=== PATIENT | male | born 1955 | race Caucasian/White ===

== ENCOUNTER 2016-04-03 09:12 | Emergency (ER) | payer OTHER ==
[2016-04-03 09:19] VITALS: RESP 18; TEMP 97.3; O2SAT 96
--- NOTE | 2016-04-03 11:30 | EDPHY ---
H & P Stated Complaint: HX OF OLD TO FOOT STILL HURTING. NOT USING [place] BOOT HPI/ROS: Chief complaint: Right foot pain, recent foot fracture History of present illness: This is a 60-year-old male who presents to the emergency department for persistent right foot pain. Patient states approximately 3 weeks ago he tripped and fell and broke his foot. He was seen at a hospital in [place]. He was placed in a walking boot. He states the walking boot was uncomfortable and he quickly stopped using it. He states he still has persistent pain. He denies other associated signs or symptoms including no open wounds, no paresthesias or abnormal coolness to the foot. No report of new trauma. No report of pain in or trauma to other parts of the body. 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 The knee and lower leg are nontender. He can move the knee well. He can move the digits of the foot well. Discomfort moving the ankle. Neurologic exam: The patient has normal sensation and motor function distal to the injury. Vascular exam: Normal pulses and capillary refill in the foot Skin: No open wounds to the right foot or ankle. Constitutional: Initial Vital Signs Temperature (C) 36.3 C 04/03/16 09:16 Heart Rate 103 H 04/03/16 09:16 Respiratory Rate 18 04/03/16 09:16 Blood Pressure 134/92 H 04/03/16 09:16 O2 Sat (%) 96 04/03/16 09:16 O2 Delivery Mode Room Air Allergies/Adverse Reactions: No Known Allergies Allergy (Unverified 04/03/16 09:19) Home Medications: Medication Instructions Recorded Hydrocodone/APAP 5/325 [[place] 1 tab PO Q4 #10 tab 04/03/16 5/325 (*)] Medical Decision Making - Diagnostics Imaging: X-ray series of the right ankle and foot reveal a an acute distal fibula fracture Procedures: Procedure: Splint placement. A walking boot splint was applied. After application of the splint I returned and re-examined the patient. The splint was adequately immobilizing the joint and distal to the splint the patient's circulation and sensation was intact. ED Course/Re-evaluation: Patient seen under the supervision of my secondary supervising physician Dr. Rene Kerns. Patient presents to the emergency department for persistent foot pain after reportedly fractured it 3 weeks ago. He has not been using the splint he was placed in. His foot is neurovascularly intact. X-rays do show a distal fibular fracture. He is placed back in a walking boot. I have discussed the importance of maintaining proper immobilization to allow this his injury to heal. He is referred to Orthopedics for further evaluation and care. Strict return precautions are given. Differential Diagnosis: Included but not limited to contusion, sprain or strain, bony fracture, unlikely joint dislocation or compartment syndrome Departure - Departure Disposition: Home, Routine, Self-Care Clinical Impression: Ankle fracture Qualifiers: Encounter type: initial encounter Fracture type: closed Laterality: right Qualified Code(s): S82.891A - Other fracture of right lower leg, initial encounter for closed fracture Condition: Good Instructions: Ankle Fracture (ED) Additional Instructions: Follow-up with orthopedics for continued evaluation and care In regards to pain control see the following: Use ibuprofen [600] mg [3] times a day for the next 2-3 days for pain In addition You have been prescribed [[place]] for pain. [[place]] contains Tylenol, do not take extra Tylenol/acetaminophen/Apap with it. It is sedating. If symptoms worsen or new symptoms develop return to the emergency department for recheck Referrals: NONE *PRIMARY CARE P,. [Primary Care Provider] - As per Instructions Anne-Marie Singletary MD [Medical Doctor] - As per Instructions Prescriptions: Hydrocodone/APAP 5/325 [[place] 5/325 (*)] 1 tab PO Q4 #10 tab
[2016-04-03 11:50] VITALS: BP 148/77; PULSE 68
== END 2016-04-03 11:49 | disposition home or self-care (01) ==
DX: S82.891A Other fracture of right lower leg, initial encounter for closed fracture (principal); I10 Essential (primary) hypertension; F17.200 Nicotine dependence, unspecified, uncomplicated; W01.0XXA Fall on same level from slipping, tripping and stumbling without subsequent striking against object, initial encounter
CPT/HCPCS: 73610; 73630; 99283; L4386

== ENCOUNTER 2016-04-07 09:02 | Emergency (ER) | payer OTHER ==
[2016-04-07 09:09] VITALS: RESP 16
--- NOTE | 2016-04-07 10:20 | EDPHY ---
H & P Stated Complaint: fx r foot is out of pain meds HPI/ROS: Chief complaint: Continue right ankle pain History of present illness: This is a 60-year-old male who presents to the emergency department for evaluation of continued right ankle pain. Approximately a month ago he broke his ankle in [place]. He was initially evaluated there and placed in a walking boot. He was seen in this emergency department approximately a week ago as he reported persistent pain. He had stopped using his walking boot at that time. He was placed back in a walking boot. Given pain medication and referred to Orthopedics. He states he is out pain medication and the pain has returned. He lost his information for following up with orthopedics. He denies other associated signs or symptoms including no new trauma, no report of open wounds, no paresthesias or abnormal coolness in the leg. 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 Is not range given known fracture. The knee, lower leg and foot are nontender. He is moving all digits in the foot without difficulty. Muscle compartments are soft and nontender. Vascular: DP and PT pulses 2+. Capillary refill brisk in the right foot. Neurologic: Sensation intact throughout the right lower extremity. Constitutional: Initial Vital Signs Temperature (C) 36.2 C 04/07/16 09:07 Heart Rate 81 04/07/16 09:07 Respiratory Rate 16 04/07/16 09:07 Blood Pressure 142/92 H 04/07/16 09:07 O2 Sat (%) 94 04/07/16 09:07 O2 Delivery Mode Room Air Allergies/Adverse Reactions: No Known Allergies Allergy (Verified 04/07/16 09:06) Home Medications: Medication Instructions Recorded Hydrocodone/APAP 5/325 [[place] 1 tab PO Q4 #10 tab 04/03/16 5/325 (*)] Hydrocodone/APAP 5/325 [[place] 1 tab PO Q4 #15 tab 04/07/16 5/325 (*)] Medical Decision Making ED Course/Re-evaluation: Patient seen under the supervision of my secondary supervising physician Dr. Emanuel Astorga. Patient returns to the emergency department for persistent pain from a right ankle fracture. He is in a walking boot. He has not arranged follow-up with orthopedics as of yet. His foot is neurovascularly intact. No report of new trauma. Imaging studies were obtained last time and therefore not repeated. Case management has seen patient and arranged follow-up with primary care doctor and Orthopedics for recheck. Home care is discussed. Return precautions are given. Patient voiced understanding and agreement with plan. Departure - Departure Disposition: Home, Routine, Self-Care Clinical Impression: Ankle fracture Qualifiers: Encounter type: initial encounter Fracture type: closed Laterality: right Qualified Code(s): S82.891A - Other fracture of right lower leg, initial encounter for closed fracture Condition: Good Instructions: Ankle Fracture (ED) Additional Instructions: Follow-up with orthopedics for recheck. You have an appointment with SAT[facility] at [facility] [phone] on 04/08/16 at 9a.m. Please arrive at 8:45a.m. to fill out new patient paper work. Please bring your insurance card and ID. [facility] is located at [address] [place] [address]. You have an appointment at [facility] tomorrow Thursday04/08/16 at 3:40pm. In regards to pain control see the following: Use ibuprofen [600] mg [3] times a day for the next 2-3 days for pain In addition You have been prescribed [[place]] for pain. [[place]] contains Tylenol, do not take extra Tylenol/acetaminophen/Apap with it. It is sedating. Continue to wear your walking boot If symptoms worsen or new symptoms develop return to the emergency department for recheck. Referrals: NONE *PRIMARY CARE P,. [Primary Care Provider] - As per Instructions [facility],. [Clinic] - As per Instructions Catarino Mcdonnell MD [Medical Doctor] - As per Instructions Prescriptions: Hydrocodone/APAP 5/325 [[place] 5/325 (*)] 1 tab PO Q4 #15 tab
[2016-04-07 11:50] VITALS: BP 138/71; PULSE 74; TEMP 98.2; O2SAT 95
== END 2016-04-07 11:44 | disposition home or self-care (01) ==
DX: S82.891A Other fracture of right lower leg, initial encounter for closed fracture (principal); I10 Essential (primary) hypertension; F17.200 Nicotine dependence, unspecified, uncomplicated; X58.XXXA Exposure to other specified factors, initial encounter

== ENCOUNTER 2016-04-10 11:32 | Emergency (ER) | payer OTHER ==
[2016-04-10] MEDS ORDERED: NS 1,000 ML IV ONE (11:51)
--- NOTE | 2016-04-10 11:52 | EDPHY ---
H & P Stated Complaint: sob, cough, nausea, diarrhea-just seen at [facility] Source: Patient Exam Limitations: No limitations - Personal History Current Tetanus/Diphtheria Vaccine: Unsure Current Tetanus Diphtheria and Acellular Pertussis (TDAP): Unsure - Medical/Surgical History Hx Asthma: No Hx Chronic Respiratory Disease: No Hx Diabetes: No Hx Cardiac Disease: No Hx Renal Disease: No Hx Cirrhosis: No Hx Alcoholism: No Hx HIV/AIDS: No Hx Splenectomy or Spleen Trauma: No Other PMH: FX TO R FOOT, HTN , NO HEARING TO L Ear. fractured ribs 03/28 - Social History Smoking Status: Current every day smoker HPI/ROS: CHIEF COMPLAINT: Cough, right-sided rib pain, fever HISTORY OF PRESENT ILLNESS: patient has several day history of right-sided rib pain, cough, fever, shortness of breath, difficulty breathing. He feels he has pneumonia with the flu. Reports having mechanical fall 2 weeks ago that resulted in right-sided rib fractures. he was doing well for couple days, but over the past few days as he notes the above complaints. Worse with any kind of exertion or lying down. Improved edema. Some mild headache, fevers and chills. Associated with body aches. No nausea or vomiting. No chest pain at rest. No neck pain or stiffness. No other modifying factors. No other associated complaints. Patient is homeless. REVIEW OF SYSTEMS: Ten systems reviewed and are negative unless otherwise noted in the HPI EXAMINATION General Appearance: Alert, no distress Head: normocephalic, atraumatic Eyes: Pupils equal and round, no conjunctival pallor or injection ENT, Mouth: Mucous membranes moist . Uvula midline. No erythema or edema. Neck: Normal inspection, supple, non-tender . Painless range of motion all planes. No nuchal rigidity. No meningismus Respiratory: Lungs are clear to auscultation. Mild rhonchi on the right. No consolidation or diminishment. There is tenderness to palpation on the right anterior rib line. No crepitus. No paradoxical chest movements. Cardiovascular: Regular rate and rhythm . No murmur. Pulses intact distally symmetrically. Gastrointestinal: Abdomen is soft and nontender . No tympany rigidity. Neurological: A&O, nonfocal, Strength is symmetric in all 4 limbs. Skin: Warm and dry, no rash Extremities: Right lower extremity with [place] boot placed due to recent ankle sprain. Range of motion is symmetric in both upper extremities Psychiatric: Mood and affect normal DIFFERENTIAL DIAGNOSES: Including but not limited to pneumonia, influenza, pleurisy, viral illness, hemothorax, pneumothorax, PE MDM: 11:50 a.m. right-sided rib pain with fractures 2 weeks ago, cough, fever. Patient has an examination consistent with possible pneumonia versus influenza. Vital signs are stable. No chest pain at rest. The chest pain that he complains of is completely reproducible on the right side over his areas of reported rib fracture. No abdominal abnormalities on examination. No neck pain or stiffness. Laboratory studies and chest x-ray have been ordered. 1:30 p.m. laboratory studies reveal leukocytosis. Chemistries unremarkable. Flu swab is negative. Chest x-ray reveals the previously diagnosed right-sided rib fractures with a possible left lower lobe pneumonia. No other acute findings. I have discussed case with Dr. Shankar, and he will examine the patient. 1:35 p.m. I have re-evaluated the patient. He is resting comfortably in no acute distress with normal vital signs. Chest x-ray suggests the possibility of a left lower lobe pneumonia, but this is not consistent with auscultation. I have ordered a CT scan of the chest to rule out PE and to evaluate for the possibility of pulmonary contusion versus pneumonia. 2:26 p.m. Notified by radiologist of the CT scan findings. No PE. No dissection. No pneumonia. Rib fractures appear chronic. There is emphysema noted. No other acute findings. I have re-evaluated the patient. Resting comfortably in no acute distress with normal vital signs. Plan on discharge home with Zithromax, [id number] anti-inflammatories, albuterol and incentive spirometer. Follow up with primary care physician or [facility]. Nurse behavioral health case manager will help with disposition As he is homeless. SUPERVISION: Patient was evaluated in conjunction with the supervising physician. Please see their note for details. (Jabier Mason) Constitutional: Initial Vital Signs Temperature (C) 99.1 F 04/10/16 11:36 Heart Rate 112 H 04/10/16 11:36 Respiratory Rate 20 04/10/16 11:36 Blood Pressure 103/53 L 04/10/16 11:36 O2 Sat (%) 92 04/10/16 11:36 O2 Delivery Mode Nasal Cannula O2 (L/minute) 2 Allergies/Adverse Reactions: No Known Allergies Allergy (Verified 04/07/16 09:06) Home Medications: Medication Instructions Recorded Albuterol 04/10/16 Albuterol [Proventil Inhaler HFA 1 - 2 puffs IH Q4H PRN #1 mdi 04/10/16 (*)] Azithromycin [Zithromax] 250 mg PO DAILY #6 tab 04/10/16 Medical Decision Making ED Course/Re-evaluation: The patient was evaluated and managed by the physician's assistant clinical director. My cosignature indicates that I reviewed the chart and I agree with the findings and plan of care as documented. I am the secondary supervising physician. I personally evaluated the patient. When I was in the room the patient's oxygen saturation was 94% on room air. The patient had noted coarse BS. Right greater than left. I reviewed the chest x-ray. Due the patient's elevated white count findings on physical exam a CT angiogram was ordered. (Nikkie Shankar) - Data Points Laboratory Results: Laboratory Results 04/10/16 12:08 04/10/16 12:08 04/10/16 04/10/16 04/10/16 12:08 12:08 12:08 WBC 16.92 10^3/uL H 10^3/uL (3.80-9.50) RBC 4.06 10^6/uL L 10^6/uL (4.40-6.38) Hgb 14.5 g/dL g/dL (13.7-17.5) Hct 42.1 % % (40.0-51.0) MCV 103.7 fL H fL (81.5-99.8) MCH 35.7 pg H pg (27.9-34.1) MCHC 34.4 g/dL g/dL (32.4-36.7) RDW 15.0 % % (11.5-15.2) Plt Count 131 10^3/uL L 10^3/uL (150-400) MPV 11.5 fL fL (8.7-11.7) Neut % (Auto) 88.1 % H % (39.3-74.2) Lymph % (Auto) 2.6 % L % (15.0-45.0) [place] % (Auto) 8.2 % % (4.5-13.0) Eos % (Auto) 0.0 % L % (0.6-7.6) Baso % (Auto) 0.4 % % (0.3-1.7) Nucleat RBC Rel Count 0.0 % % (0.0-0.2) Absolute Neuts (auto) 14.91 10^3/uL H 10^3/uL (1.70-6.50) Absolute Lymphs (auto) 0.44 10^3/uL L 10^3/uL (1.00-3.00) Absolute Monos (auto) 1.39 10^3/uL H 10^3/uL (0.30-0.80) Absolute Eos (auto) 0.00 10^3/uL L 10^3/uL (0.03-0.40) Absolute Basos (auto) 0.06 10^3/uL 10^3/uL (0.02-0.10) Absolute Nucleated RBC 0.00 10^3/uL 10^3/uL (0-0.01) Immature Gran % 0.7 % % (0.0-1.1) Immature Gran # 0.12 10^3/uL H 10^3/uL (0.00-0.10) Sodium 136 mEq/L mEq/L (134-144) Potassium 4.6 mEq/L mEq/L (3.5-5.2) Chloride 104 mEq/L mEq/L (97-110) Carbon Dioxide 20 mEq/l L mEq/l (22-31) Anion Gap 12 mEq/L mEq/L (8-16) BUN 17 mg/dL mg/dL (7-23) Creatinine 1.0 mg/dL mg/dL (0.7-1.3) Estimated GFR > 60 Glucose 115 mg/dL H mg/dL (70-100) Calcium 8.9 mg/dL mg/dL (8.5-10.4) Lipase 180.0 IU/L IU/L (23-300) Influenza Typ A,B (DFA) NEGATIVE FOR FLU (NEGATIVE) Medications Given: Discontinued Medications Sodium Chloride (Ns) 1,000 mls @ 0 mls/hr IV ONCE ONE PRN Reason: Wide Open Stop: 04/10/16 11:52 Last Admin: 04/10/16 12:00 Dose: 1,000 mls Departure - Departure Disposition: Home, Routine, Self-Care Clinical Impression: Cough Emphysema lung Qualifiers: Emphysema type: unspecified Qualified Code(s): J43.9 - Emphysema, unspecified Condition: Good Instructions: COPD (Chronic Obstructive Pulmonary Disease) (ED) Additional Instructions: Follow-up with PCP as described. Return to ER for any worsening symptoms, any chest pain at rest or difficulty breathing Referrals: NONE *PRIMARY CARE P,. [Primary Care Provider] - As per Instructions [facility],. [Clinic] - As per Instructions Prescriptions: Albuterol [Proventil Inhaler HFA (*)] 1 - 2 puffs IH Q4H PRN #1 mdi PRN Reason: Short Of Breath/Dyspnea Azithromycin [Zithromax] 250 mg PO DAILY #6 tab
[2016-04-10 12:21] LABS: % IMMATURE GRANULYOCYTES 0.7 % (0.0-1.1); ABSOLUTE IMMATURE GRANULOCYTES 0.12 10^3/uL (0.00-0.10); ADD DIFF? NO; ADD MORPH? NO; ADD SCAN? NO; ATYPICAL LYMPHOCYTE FLAG 0 (0-99); FRAGMENT RBC FLAG 0 (0-99); HEMATOCRIT 42.1 % (40.0-51.0); HEMOGLOBIN 14.5 g/dL (13.7-17.5); LEFT SHIFT FLG 30 (0-99); LIPEMIA HEMOLYSIS FLAG 90 (0-99); MEAN CELL HEMOGLOBIN 35.7 pg (27.9-34.1); MEAN CELL HEMOGLOBIN CONCENTR. 34.4 g/dL (32.4-36.7); MEAN CELL VOLUME 103.7 fL (81.5-99.8); MEAN PLATELET VOLUME 11.5 fL (8.7-11.7); PLATELET CLUMPS FLAG 10 (0-99); PLATELET COUNT 131 10^3/uL (150-400); RED BLOOD CELL COUNT 4.06 10^6/uL (4.40-6.38)
[2016-04-10 13:25] LABS: ANION GAP 12 mEq/L (8-16); CALCIUM 8.9 mg/dL (8.5-10.4); CARBON DIOXIDE 20 mEq/l (22-31); CHLORIDE 104 mEq/L (97-110); GLOMERULAR FILTRATION RATE > 60; GLUCOSE 115 mg/dL (70-100); POTASSIUM 4.6 mEq/L (3.5-5.2); SODIUM 136 mEq/L (134-144)
[2016-04-10] MEDS ORDERED: IPRATROPIUM/ALBUTEROL 3 ML DEYVIAL IH ONE (13:36)
[2016-04-10] MEDS ORDERED: IOPAMIDOL (ISOVUE-370) 150 ML BTL IV ONE (13:40)
[2016-04-10] MEDS ORDERED: DEXAMETHASONE 10 MG/ML VIAL IVP ONE (14:08)
[2016-04-10 14:52] VITALS: RESP 20; O2SAT 92
[2016-04-10 17:12] VITALS: BP 110/71; PULSE 88; TEMP 99.1
== END 2016-04-10 17:12 | disposition home or self-care (01) ==
DX: J43.9 Emphysema, unspecified (principal); I10 Essential (primary) hypertension; F17.200 Nicotine dependence, unspecified, uncomplicated
CPT/HCPCS: 71020; 71275; 96361; 96374; 99285; Q9967

== ENCOUNTER 2016-04-20 10:53 | Emergency (ER) | payer OTHER ==
[2016-04-20] MEDS ORDERED: DEXAMETHASONE 4 MG TAB PO ONE (11:46)
[2016-04-20] MEDS ORDERED: IPRATROPIUM/ALBUTEROL 3 ML DEYVIAL IH ONE (11:46)
--- NOTE | 2016-04-20 11:55 | EDPHY ---
General - History Smoking Status: Current every day smoker Narrative: CHIEF COMPLAINT: cough HISTORY OF PRESENT ILLNESS: Several days of cough, congestion and pleuritic pain with cough. no chest pain at rest. No fever. Was coughing up some blood several days ago but this stopped. Now reports coughing up green phlegm. No abdominal or urinary complaints. No headache or dizziness. No sore throat. Symptoms are worse after smoking. Minimal improvement at rest with over-the- counter medications are albuterol. He was here on the 2nd discharged home with albuterol and Zithromax for similar complaint. He reports that he finished this and felt well until last few days. No other associated complaints or modifying factors. REVIEW OF SYSTEMS: Ten systems reviewed and are negative unless otherwise noted in the HPI PERTINENT MEDICAL HISTORY: EXAMINATION General Appearance: Alert, no distress , unkempt Head: normocephalic, atraumatic Eyes: Pupils equal and round, no conjunctival pallor or injection ENT, Mouth: Mucous membranes moist. Uvula midline. Poor dentition. Neck: Normal inspection, supple, non-tender Respiratory: Mild wheezing. No consolidation. No diminishment. No crackles. No distress Cardiovascular: Regular rate and rhythm. No murmur. Pulses intact distally. Gastrointestinal: Abdomen is soft and nontender Back: non-tender, no bony abnormalities Neurological: A&O, nonfocal, normal gait Skin: Warm and dry, no rash Extremities: Nontender, no pedal edema Psychiatric: Mood and affect normal DIFFERENTIAL DIAGNOSES: Including but not limited to viral bronchitis, bronchitis, COPD, pneumonia MDM: 11:45 a.m. cough with pleuritic type complain of pain. Vital signs were well within normal limits. He does have a mild wheezing on the right side. No consolidation. No distress. Patient has history of emphysema and examination is more consistent with this than other diagnoses. He was here recently within the past [address] scan that showed the same without pneumonia. He was discharged home with albuterol and Zithromax and reportedly finished this. No fever. No chest pain at rest. 1:15 p.m. Cough and congestion with improved chest x-ray on this visit. Vital signs are better than the last time I evaluated the patient and within normal limits. He did improve his mild wheezing with a duoneb treatment. Still no chest pain of any kind. No fever. I do not feel he warrants any further antibiosis as he recently finished Levaquin. Will continue steroid therapy at home, continuous albuterol, and follow up with primary care physician. Return to ER for any chest pain of any kind, worsening cough or shortness of breath. Patient is comfortable with this plan, I have answered all his questions, he is discharged home stable condition SUPERVISION: This patient was independently evaluated without the aide of supervising physician. Case discussed with Dr. Ordonez ([facility]) Medical Decision Making: I did see this patient while he was in the emergency department. However his care was discussed with the PA while the patient was in the department. I agree with treatment plan and management (Pavan Ordonez) - Objective Vital Signs: Initial Vital Signs Temperature (C) 98.1 F 04/20/16 11:00 Heart Rate 84 04/20/16 11:00 Respiratory Rate 16 04/20/16 11:00 Blood Pressure 130/75 H 04/20/16 11:00 O2 Sat (%) 95 04/20/16 11:00 O2 Delivery Mode Room Air Allergies/Adverse Reactions: No Known Allergies Allergy (Verified 04/20/16 11:03) Home Medications: Medication Instructions Recorded Albuterol [Proventil Inhaler HFA 1 - 2 puffs IH Q4H PRN #1 mdi 04/10/16 (*)] Benzonatate [Tessalon Pearles (RX)] 100 mg PO Q8 PRN #15 cap 04/20/16 predniSONE [Deltasone] 60 mg PO DAILY #15 tablet 04/20/16 Medications Given: Discontinued Medications Albuterol/Ipratropium (Duoneb) 3 ml IH EDNOW ONE Stop: 04/20/16 11:47 Last Admin: 04/20/16 12:20 Dose: 3 ml Dexamethasone (Decadron) 8 mg PO EDNOW ONE Stop: 04/20/16 11:47 Last Admin: 04/20/16 12:20 Dose: 8 mg Departure - Departure Disposition: Home, Routine, Self-Care Clinical Impression: Cough, COPD (chronic obstructive pulmonary disease) Condition: Good Instructions: Emphysema (ED) Additional Instructions: Follow-up with [facility] for definitive care. Return to the ER for any chest pain Referrals: NONE *PRIMARY CARE P,. [Primary Care Provider] - As per Instructions [facility],. [Clinic] - As per Instructions Prescriptions: Benzonatate [Tessalon Pearles (RX)] 100 mg PO Q8 PRN #15 cap PRN Reason: Cough, Mild predniSONE [Deltasone] 60 mg PO DAILY #15 tablet
[2016-04-20 13:20] VITALS: BP 133/83; PULSE 82; RESP 18; TEMP 99.1; O2SAT 93
== END 2016-04-20 13:21 | disposition home or self-care (01) ==
DX: J44.9 Chronic obstructive pulmonary disease, unspecified (principal); F17.200 Nicotine dependence, unspecified, uncomplicated